=== PATIENT | male | born 1945 | race Caucasian/White ===

== ENCOUNTER 2016-06-03 07:23 | Inpatient (IN) | payer BC, OTHER ==
[~2016-06-03] VITALS: Ht 172.7 cm; Wt 81.6 kg
[2016-06-03 07:39] VITALS: BP 127/81; PULSE 89; RESP 16; TEMP 98.2; O2SAT 99
[2016-06-03] MEDS ORDERED: NACL 0.9% 1,000 ML IV SCH (07:39)
--- NOTE | 2016-06-03 07:42 | NUR ---
AMBULATED TO BED 3
--- NOTE | 2016-06-03 07:43 | NUR ---
Dr. Nix at bedside for evaluation
[2016-06-03] MEDS ORDERED: KETOROLAC TROMETHAMINE 30 MG VIAL IVP ONE (08:00)
[2016-06-03] MEDS ORDERED: ONDANSETRON HCL 4 MG/2 ML VIAL IVP ONE (08:00)
--- NOTE | 2016-06-03 08:00 | NUR ---
Pt c/o constant upper abd pain x4 days. Denies nausea/vomiting/diarrhea. Last BM 2 days ago, denies constipation. States that he arrived here from [place] on Sunday and has been "eating alot". Denies alcohol use. Hx of back problems which his back was "hurting 2 days ago".
--- NOTE | 2016-06-03 08:06 | NUR ---
Medicated per MD orders. IVF infusing to RAC with no s/sx of infiltration at this time.
[2016-06-03 08:07] LABS: BASOPHILS # (AUTO) 0.1 K/uL (0.0-0.2); BASOPHILS % (AUTO) 0.6 % (0.0-2.0); EOSINOPHILS % (AUTO) 0.1 % (0.0-4.0); HEMATOCRIT 45.5 % (36-54); LYMPHOCYTES # (AUTO) 3.7 K/uL (1.0-5.5); LYMPHOCYTES % (AUTO) 20.7 % (20.5-51.5); MEAN CORPUSCULAR HEMOGLOBIN 29 pg (27-31); MEAN CORPUSCULAR HGB CONC 33 % (32-36); MEAN CORPUSCULAR VOLUME 87 fL (79.0-98.0); MONOCYTES % (AUTO) 5.8 % (1.7-9.3); NEUTROPHILS # (AUTO) 12.9 K/uL (1.8-7.7); NEUTROPHILS % (AUTO) 72.8 % (40.0-70.0); PLATELET COUNT (AUTO) 299 K/uL (130-430); RED BLOOD CELL COUNT(AUTO) 5.22 MIL/uL (4.2-6.2); RED CELL DISTRIBUTION WIDTH 12.7 % (9.0-15.0); WHITE BLOOD COUNT (AUTO) 17.7 K/uL (4.8-10.8)
[2016-06-03 08:10] LABS: CALCIUM 9.6 mg/dL (8.4-11.0); CREATININE 0.79 mg/dL (0.55-1.30); POTASSIUM 3.1 mmol/L (3.5-5.1)
[2016-06-03 08:15] LABS: ALBUMIN 4.2 g/dL (3.4-4.8); TOTAL BILIRUBIN 1.3 mg/dL (0.0-1.0); TOTAL PROTEIN, SERUM 9.1 g/dL (6.4-8.3)
--- NOTE | 2016-06-03 08:45 | NUR ---
Pt states pain is "nearly gone". No acute distress. Will continue to monitor
[2016-06-03 08:53] LABS: BILIRUBIN,URINE NEGATIVE (NEGATIVE); BLOOD, URINE 2+ (NEGATIVE); CLARITY/URINE CLEAR (CLEAR); COLOR,URINE YELLOW (YELLOW); GLUCOSE,URINE NEGATIVE (NEGATIVE); KETONES,URINE 2+ (NEGATIVE); LEUKOCYTE ESTERASE ,URINE NEGATIVE (NEGATIVE); NITRITE, URINE NEGATIVE (NEGATIVE); PROTEIN URINE 2+ (NEGATIVE); UROBILINOGEN,URINE 0.2 (0.2-1.0)
[2016-06-03 09:13] LABS: BACTERIA,URINE FEW /HPF (None Seen); WBC,URINE 0-3 /HPF (0-3)
[2016-06-03 09:14] LABS: MUCUS,URINE None Seen /LPF (None Seen)
[2016-06-03 09:23] LABS: AMYLASE 50 U/L (0-100); LIPASE 206 U/L (73-393)
[2016-06-03] MEDS ORDERED: PIPERACILLIN/TAZO 3.375 GM in NS 50 ML IV ONE (10:00)
[2016-06-03] MEDS ORDERED: PRO40 PO (10:07)
--- NOTE | 2016-06-03 10:07 | NUR ---
Medication reconciliation completed with information provided by patient. Any prior medication reconciliation on file was reviewed and corrected.
[2016-06-03] MEDS ORDERED: POTASSIUM CHLORIDE 20 MEQ TAB.PRT.SR PO ONE (10:15)
[2016-06-03] MEDS ORDERED: PIPERACILLIN/TAZOBACTAM 3.375 GM/VIAL (ZOSYN) IV ONE (10:15)
--- NOTE | 2016-06-03 10:21 | NUR ---
Patient will be admitted to care of Dr. Mackey. Admitted to med/surg unit. Will go to room 135. Belongings list completed. Summary report printed. Report given to RN at bedside. Transfer to [facility]. IV present no sign or symptom of infiltration.
--- NOTE | 2016-06-03 10:33 | NUR ---
ADMISSION: The patient, CHRIS RODRIGUEZ, 70 y/o, M admitted by BLANCA MYERS MD, was given written information regarding hospital policies, unit procedures and contact persons.
[2016-06-03 10:37] VITALS: BP 135/80; PULSE 88; RESP 18; TEMP 98.2; O2SAT 100
[2016-06-03 10:40] VITALS: BP 135/80; PULSE 88; RESP 18; TEMP 98.2; O2SAT 100
--- NOTE | 2016-06-03 11:13 | NUR ---
CALLED GI CONSULT TO DR MONROY, DR CRAVEN DE ICER ELEMENT WINDER RE: CHOLEGENTIS. SPOKE TO LISA
[2016-06-03] MEDS: LR 1,000 ML IV SCH ×2 (11:47→22:10)
--- NOTE | 2016-06-03 12:00 | NUR ---
NOTE REC'D PT FROM [facility] ADMIT RN AT 1115AM. PT STABLE. ORIENTED PT TO NURSING ROUTINE AND PROCEDURES. IVF'S INFUSING WELL THROUGH RIGHT AC IV SITE. PT AMBULATORY TO RESTROOM WITH STEADY GAIT AND IV POLE. NO NEEDS NOTED AT THIS TIME. PT'S AT BEDSIDE AT THIS TIME. CALL LIGHT WITHIN REACH.
[2016-06-03] MEDS ORDERED: fentaNYL CITRATE/PF 100 MCG/2 ML AMP ONE (14:00)
[2016-06-03] MEDS ORDERED: MIDAZOLAM HCL 5 MG/5 ML VIAL ONE (14:00)
[2016-06-03] MEDS ORDERED: NS IRRIG SOLN 1000 ML IR ONE (14:00)
[2016-06-03] MEDS ORDERED: SEVOFLURANE 15 MIN GAS INH ONE (14:00)
[2016-06-03] MEDS ORDERED: LR 1,000 ML IV.SOLN IV ONE (14:00)
[2016-06-03] MEDS ORDERED: ONDANSETRON HCL 4 MG/2 ML VIAL ONE (14:00)
[2016-06-03] MEDS ORDERED: ROCURONIUM BROMIDE 10 MG/ML (ZEMURON) ONE (14:00)
[2016-06-03] MEDS ORDERED: KETOROLAC TROMETHAMINE 30 MG VIAL ONE (14:00)
[2016-06-03] MEDS ORDERED: NS 1000 ML BAG IV ONE (14:00)
[2016-06-03] MEDS ORDERED: BUPIVACAINE /EPINEPHRINE/PF 0.5% 30 ML VIAL INJ ONE (14:00)
--- NOTE | 2016-06-03 14:40 | NUR ---
NOTE PT RESTING IN BED. PT HAS BEEN KEPT NPO SINCE ADMISSION TO FLOOR AND GI CONSULTS WILL ASSESS AND GIVE ORDERS. NO NEEDS NOTED AT THIS TIME. CALL LIGHT WITHIN REACH.
[2016-06-03] MEDS ORDERED: ONDANSETRON HCL 4 MG/2 ML VIAL IVP PRN ×2 (16:45→18:00)
[2016-06-03] MEDS ORDERED: MORPHINE 4 MG/ML INJ. SYRINGE IVP PRN (16:45)
[2016-06-03] MEDS ORDERED: PANTOPRAZOLE SODIUM 40 MG/VIAL (PROTONIX) IVP ONE (18:15)
[2016-06-03 18:43] LABS: PROTHROMBIN TIME 11.2 SECS (9.5-12.5)
--- NOTE | 2016-06-03 18:50 | NUR ---
NOTE PT WAS SEEN AND ASSESSED BY DR MYERS AND ORDERS GIVEN AND CARRIED OUT AT THIS TIME. [facility]PT - [facility] CALLED, STATED EXCHANGE CONSULTANT ELIAN WILL BE COMING IN AND WILL DO PT'S US OF ABDOMEN IN 1 1/2 HOURS TONIGHT. PT'S AT BEDSIDE. CALL LIGHT WITHIN REACH. PT GIVEN URINAL REQUESTED, HE FINDS IT TOO PAINFUL TO AMBULATE TO RESTROOM AT THIS TIME.
[2016-06-03] MEDS: PIPERACILLIN/TAZO 3.375/DEX-IS 50 ML IV SCH (19:01)
[2016-06-03 20:00] VITALS: BP 129/78; PULSE 108; RESP 18; TEMP 98.7; O2SAT 98
--- NOTE | 2016-06-03 20:00 | NUR ---
INITIAL NOTES: PATIENT IN BED ORIENTED X4. AT BEDSIDE. HAS TOLERABLE ABDOMINAL PAIN. DENIES SOB NOR CHEST PAIN.VITAL SIGNS TAKEN,ALL WITHIN NORMAL LIMITS. IVF INFUSING WELL TO RIGHT AC NS 100ML/HR. SITE CLEAR.INSTRUCTED TO SAVE URINE FOR TEST. RECEPTIVE. CALL LIGHT WITHIN REACH. BED IN LOW POSITION. TACHYCARDEIC .WILL MONITOR CLOSELY.
[2016-06-03 20:10] VITALS: BP 135/81; PULSE 99
--- NOTE | 2016-06-03 20:50 | NUR ---
ABDOMINAL ULTRASOUND DONE.
[2016-06-03] MEDS: LACTOBACILLUS RHAMNOSUS GG 1 CAP CAPSULE PO SCH (21:00)
--- NOTE | 2016-06-03 21:09 | NUR ---
CONSULT: DR DE LA CRUZ Consult was called, RE cholecystitis virgie Mari
--- NOTE | 2016-06-03 21:40 | NUR ---
CALLED BACK. REPORT GIVEN. WILL SEE PATIENT IN AM.
--- NOTE | 2016-06-03 23:30 | NUR ---
PAIN: PATIENT COMPLAIN OF ABDOMINAL PAIN.DILAUDID 2MG IV GIVEN VIA CLEAR IV SITE ,LEVEL 7/10.
[2016-06-03] MEDS: HYDROmorphone 2 MG/ML VIAL IVP PRN (23:32)
--- NOTE | 2016-06-04 | NUR ---
FEVER: TEMP. 101.6. WITH 5 BLANKETS AND JACKET. REMOVED LEAVING SHEET AND BATH BLANKET.
[2016-06-04] MEDS: PIPERACILLIN/TAZO 3.375/DEX-IS 50 ML IV SCH ×4 (00:43→17:46)
[2016-06-04 00:50] VITALS: BP 107/67; PULSE 103; RESP 17; TEMP 101.7; O2SAT 94
--- NOTE | 2016-06-04 01:01 | NUR ---
paged for Dr Mackey, dialed . s/w Celeste.
--- NOTE | 2016-06-04 01:05 | NUR ---
RECHECKED, 101.8. COOLING MEASURES INITIATED.
[2016-06-04] MEDS: ACETAMINOPHEN 650 MG SUPP.RECT RC PRN ×2 (01:40→20:25)
--- NOTE | 2016-06-04 01:40 | NUR ---
Liudmila WADE CALLED BACK. REPORTED ABOUT FEVER ,WITH ORDERS. BLOOD CULTURE DONE.
--- NOTE | 2016-06-04 01:45 | NUR ---
TYLENOL SUPPOSITORY GIVEN ORDERED.
--- NOTE | 2016-06-04 02:30 | NUR ---
PATIENT RESTING QUITELY. THIS TIME.
[2016-06-04 04:00] VITALS: BP 110/70; PULSE 97; RESP 16; TEMP 99.7; O2SAT 96
--- NOTE | 2016-06-04 04:00 | NUR ---
PATIENT SLEEPING THIS TIME.
[2016-06-04 06:30] LABS: BASOPHILS % (AUTO) 0.1 % (0.0-2.0); HEMATOCRIT 39.9 % (36-54); HEMOGLOBIN 13.4 g/dL (14.0-18.0); LYMPHOCYTES # (AUTO) 1.8 K/uL (1.0-5.5); LYMPHOCYTES % (AUTO) 10.6 % (20.5-51.5); MEAN CORPUSCULAR HEMOGLOBIN 29 pg (27-31); MEAN CORPUSCULAR HGB CONC 33 % (32-36); MEAN CORPUSCULAR VOLUME 88 fL (79.0-98.0); MONOCYTES # (AUTO) 1.4 K/uL (0.0-1.0); MONOCYTES % (AUTO) 8.2 % (1.7-9.3); NEUTROPHILS # (AUTO) 14.1 K/uL (1.8-7.7); NEUTROPHILS % (AUTO) 81.1 % (40.0-70.0); PLATELET COUNT (AUTO) 276 K/uL (130-430); RED BLOOD CELL COUNT(AUTO) 4.56 MIL/uL (4.2-6.2); RED CELL DISTRIBUTION WIDTH 12.5 % (9.0-15.0); WHITE BLOOD COUNT (AUTO) 17.3 K/uL (4.8-10.8)
--- NOTE | 2016-06-04 06:30 | NUR ---
CLOSING: PATIENT IS AWAKE WRITING PERSONAL THINGS. HAS TOLERABLE ABDOMINAL PAIN. VOIDED BRADLEY CLEAR URINE. ALL NEEDS WERE ATTENDED.NO ACUTE DISTRESS. KEPT NPO. ASSISTED DO ORAL CARE. NEW GOWN USED. WILL GIVE REPORT TO AM RN .
[2016-06-04 06:42] LABS: ALBUMIN 3.3 g/dL (3.4-4.8); CREATININE 0.88 mg/dL (0.55-1.30); POTASSIUM 3.5 mmol/L (3.5-5.1); TOTAL BILIRUBIN 2.6 mg/dL (0.0-1.0); TOTAL PROTEIN, SERUM 7.6 g/dL (6.4-8.3)
[2016-06-04] MEDS: HYDROmorphone 2 MG/ML VIAL IVP PRN ×2 (06:56→20:34)
--- NOTE | 2016-06-04 07:06 | NUR ---
Handoff rounds from noc nurse. Patient not able to have trip to [facility] as planned d/t hospitalization. Requesting letter to give to the [employer] the family had arranged travel with.
[2016-06-04 08:11] VITALS: BP 92/59; PULSE 78; RESP 16; TEMP 97.4
[2016-06-04] MEDS: LR 1,000 ML IV SCH ×2 (09:00→17:47)
--- NOTE | 2016-06-04 09:00 | NUR ---
Family requesting surgeon to visit with patient. Call placed to surgeon last pm.
[2016-06-04] MEDS: LACTOBACILLUS RHAMNOSUS GG 1 CAP CAPSULE PO SCH ×2 (10:19→20:23)
[2016-06-04] MEDS: PANTOPRAZOLE SODIUM 40 MG/VIAL (PROTONIX) IVP SCH (10:19)
--- NOTE | 2016-06-04 11:09 | NUR ---
Med pass tolerated well. One prn zofran given has relieved nausea experienced by patient. Says mostly dizziness now. Discussed possible advance of diet after test MRI MRCP.
[2016-06-04 11:14] VITALS: BP 90/47; PULSE 78; RESP 16; TEMP 97; O2SAT 94
--- NOTE | 2016-06-04 11:52 | NUR ---
ROUNDS TO PATIENT. NOTES 10/07 IN RIGHT UPPER ABDOMEN QUADRANT.
--- NOTE | 2016-06-04 14:00 | NUR ---
ROUNDS TO PATIENT. ASSIST WITH POSITIVE THOUGHTS RE: PAIN. SAYS 10/07 IN ABDOMEN. WANTS TO WAIT FOR PAIN CONTROL VIA MEDICATION.
[2016-06-04 14:03] VITALS: BP 111/68; PULSE 100; RESP 16; TEMP 98.7; O2SAT 94
--- NOTE | 2016-06-04 16:00 | NUR ---
SURGEON ROUNDS. NEEDS MET AT THIS TIME. WILL MONITOR FOR FURTHER PAIN.
--- NOTE | 2016-06-04 18:25 | NUR ---
Handoff report prepared for noc nurse. Patient says antibiotics are helping him with his pain. Right side lying. Taking sips of fluid per surgeon orders.
--- NOTE | 2016-06-04 19:30 | NUR ---
INITIAL NOTES: PATIENT IN BED RESTING WITH BLANKETS ON. AT BEDSIDE.STATED FEELS COLD EARLIER.IVF INFUSING AT 100ML/HR. SITE CLEAR.CALL LIGHT WITHIN REACH, BED IN LOW POSITION. HAS FEVER. TACHY 102. WILL GIVE TYLENOL SUPP. AND DO COOLING MEASURES. NO ACUTE DISTRESS.
[2016-06-04 20:00] VITALS: BP 113/61; PULSE 100; PULSE 109; RESP 18; TEMP 101; TEMP 101.2; O2SAT 93
--- NOTE | 2016-06-04 20:30 | NUR ---
PAIN/FEVER: TEMP. 101.4.TYLENOL SUPPOSITORY GIVEN. ORAL CAR DONE. COOLING MEASURES GIVEN.
--- NOTE | 2016-06-04 21:20 | NUR ---
MEDS ADMIN: ALL DUE MEDS GIVEN WITH SIPS OF WATER. TOLERATED WELL. VOIDING DARK TEA COLORED URINE.
--- NOTE | 2016-06-04 23:30 | NUR ---
TEMP. 99.1 DOING PERSONAL THINGS ON THE COMPUTER.
[2016-06-05] VITALS (7 sets, daily range): BP systolic 106–127; BP diastolic 54–79; PULSE 89–108; RESP 16–21; TEMP 98.1–101.5; O2SAT 90–98
[2016-06-05] MEDS: PIPERACILLIN/TAZO 3.375/DEX-IS 50 ML IV SCH ×5 (00:23→23:52)
--- NOTE | 2016-06-05 00:30 | NUR ---
VOIDED DARK TEA COLORED URINE. HAS TOLERABLE ABDOMINAL PAIN.
--- NOTE | 2016-06-05 02:30 | NUR ---
PATIENT RESTING WITH EYES CLOSE. NO DISTRESS.
--- NOTE | 2016-06-05 04:30 | NUR ---
TEMP. 101.3 SKIN WARM TO TOUCH. TYLENOL SUPP. GIVEN. ASSISTED TO DO ORAL CARE. COOLING MEASURES INITIATED.
[2016-06-05] MEDS: LR 1,000 ML IV SCH ×3 (04:51→23:52)
[2016-06-05] MEDS: ACETAMINOPHEN 650 MG SUPP.RECT RC PRN ×2 (04:54→22:37)
--- NOTE | 2016-06-05 05:00 | NUR ---
SIGNED CONSENT FOR MRCP AND CHECKLIST ANSWERED AFTER EXPLAINING ABOUT IT WITH UNDERSTANDING ,WHICH WAS EXPLAINED BY YESTERDAY.
--- NOTE | 2016-06-05 05:52 | NUR ---
Paged virgie Doshi.
--- NOTE | 2016-06-05 05:55 | NUR ---
Liudmila VERMA CALLED BACK. REPORTED ABOUT PATIENT FEVER X2. TYLENOL GIVEN AND COOLING MEASURES DONE. NO NEW ORDERS. SAID CONTINUE TYLENOL SUPPOSITORY.
--- NOTE | 2016-06-05 06:50 | NUR ---
CLOSING: COOLING MEASURES IN PROGRESS. ALL NEEDS WERE ATTENDED. HOURLY ROUNDS DONE. NO ACUTE DISTRESS. REASSURANCES AND EMOTIONAL PROVIDED. WILL GIVE REPORT TO AM RN FOR CONTINUITY OF CARE.
--- NOTE | 2016-06-05 08:00 | NUR ---
AM ROUNDS: NO s/s of distress noted. Will continue to monitor.
[2016-06-05] MEDS: LACTOBACILLUS RHAMNOSUS GG 1 CAP CAPSULE PO SCH ×2 (08:23→20:43)
[2016-06-05] MEDS: PANTOPRAZOLE SODIUM 40 MG/VIAL (PROTONIX) IVP SCH (08:26)
--- NOTE | 2016-06-05 10:01 | NUR ---
PATIENT RESTING: Patient resting quietly. No acute distress noted. Vital signs within normal range.
[2016-06-05 10:03] LABS: HEMATOCRIT 39.4 % (36-54); HEMOGLOBIN 13.1 g/dL (14.0-18.0); MEAN CORPUSCULAR HEMOGLOBIN 29 pg (27-31); MEAN CORPUSCULAR HGB CONC 33 % (32-36); MEAN CORPUSCULAR VOLUME 87 fL (79.0-98.0); PLATELET COUNT (AUTO) 284 K/uL (130-430); RED BLOOD CELL COUNT(AUTO) 4.54 MIL/uL (4.2-6.2); RED CELL DISTRIBUTION WIDTH 12.6 % (9.0-15.0); WHITE BLOOD COUNT (AUTO) 19.5 K/uL (4.8-10.8)
[2016-06-05 10:15] LABS: CALCIUM 9.3 mg/dL (8.4-11.0); CREATININE 1.18 mg/dL (0.55-1.30); POTASSIUM 3.6 mmol/L (3.5-5.1)
[2016-06-05 10:20] LABS: ALBUMIN 3.1 g/dL (3.4-4.8); TOTAL BILIRUBIN 4.5 mg/dL (0.0-1.0); TOTAL PROTEIN, SERUM 7.8 g/dL (6.4-8.3)
[2016-06-05 10:26] LABS: ATYPICAL LYMPHOCYTES % 0 % (0-0); BAND % (MANUAL) 0 % (0-6); BASOPHILS % (MANUAL) 0 % (0-2); EOSINOPHILS % (MANUAL) 0 % (0-7); LYMPHOCYTES % (MANUAL) 14 % (20-46); MONOCYTES % (MANUAL) 9 % (0-11)
--- NOTE | 2016-06-05 12:25 | NUR ---
PATIENT RESTING: Patient resting quietly. No acute distress noted. Vital signs within normal range.
--- NOTE | 2016-06-05 12:43 | NUR ---
Social Service Note: Pt referred to social work nurse by sample case porter for advanced directive information. COAL WHEELER met with pt and pt's significant other at bedside. Pt states that he has an advanced directive in [place] but wants to change it; COAL WHEELER alerted pt that the advanced directive that the hospital has is a [place] advanced directive. Pt states that he his having surgery and wants to document his wishes here in [place]. COAL WHEELER spoke with pt about a POLST form; pt and pt's significant other stated that the POLST form would be most appropriate. COAL WHEELER provided pt with a POLST form and explained what needed to be filled out. Pt will fill out POLST form and then give to pt's nurse to place in chart for physician to sign. A copy of a [place] advanced directive was also given to pt per his request. COAL WHEELER will remain available for support and will follow up as needed.
[2016-06-05] MEDS ORDERED: MEPERIDINE HCL/PF 100 MG/ML AMP ONE (12:44)
[2016-06-05] MEDS: MIDAZOLAM HCL 5 MG/5 ML VIAL ONE ×4 (13:43→13:53)
[2016-06-05] MEDS: MEPERIDINE HCL/PF 100 MG/ML AMP ONE ×2 (13:43→13:56)
[2016-06-05] MEDS ORDERED: IOHEXOL 50 ML IV ONE (13:46)
--- NOTE | 2016-06-05 14:29 | NUR ---
ROUNDS: Patient is in OR.
--- NOTE | 2016-06-05 16:10 | NUR ---
ROUNDS: Patient in OR.
--- NOTE | 2016-06-05 18:51 | NUR ---
CLOSING NOTE: All needs met. ERCP performed today. Stones in common bile duct found. Possible lap choly with Dr. Coy tomorrow. Will endorse to NOC shift nurse.
--- NOTE | 2016-06-05 20:00 | NUR ---
PM Shift Assessment Received patient lying in bed, no acute distress noted, family members at the bedside. Assessment complete, low grade fever noted, cooling measures applied. Patient states pain to abdomen is tolerable at this time, pain management education provided and patient verbalized understanding. Dr Coy at the bedside, new orders noted and to be carried out. IV noted to left wrist, IV fluids infusing well, no redness or swelling noted to IV site. Plan of care discussed with patient and family, they verbalized understanding. Call light is within reach, all fall and safety precautions in place, will continue to monitor for change in patient status.
--- NOTE | 2016-06-05 22:29 | NUR ---
RN Rounds Patient is resting quietly in bed, no acute distress noted. Patient noted with fever, PRN Tylenol suppository was administered as ordered per MD, cooling measures applied, will reassess for decrease in temperature. Scheduled medications were administered as ordered per MD. Incentive spirometer noted at the bedside, education provided on the importance of use 10/hour while awake after surgery, patient verbalized understanding and is able to demonstrate correct use up to 750mL of inspired air. Encouraged patient to call for assistance as needed, call light is within reach, all fall and safety precautions in place, will continue to monitor.
[2016-06-06] VITALS (8 sets, daily range): BP systolic 120–138; BP diastolic 64–86; PULSE 80–100; RESP 17–22; TEMP 97–101.1; O2SAT 94–98
--- NOTE | 2016-06-06 00:27 | NUR ---
RN Rounds Patient is resting quietly in bed, no acute distress noted. Temperature was reassessed earlier and noted to be 100.8, additional cooling measures applied. Call IV fluids in fusing well, call light is within reach, all fall and safety precautions in place, will continue to monitor closely.
--- NOTE | 2016-06-06 02:33 | NUR ---
RN Rounds Patient is resting quietly in bed, no acute distress noted. Patient is afebrile at this time, temperature 99.7. IV fluids infusing well. Call light is within reach, all fall and safety precautions in place, will continue to monitor.
--- NOTE | 2016-06-06 04:31 | NUR ---
RN Rounds Patient is sleeping but easily arousable, no acute distress noted. Patient states pain is tolerable at this time. IV fluids infusing well. Call light is within reach, all fall and safety precautions in place, will continue to monitor.
[2016-06-06] MEDS: PIPERACILLIN/TAZO 3.375/DEX-IS 50 ML IV SCH ×4 (05:06→23:42)
--- NOTE | 2016-06-06 06:46 | NUR ---
Closing Notes Patient is resting quietly in bed, no acute distress noted or complain of pain at this time. Patient is stable, all needs met throughout shift. Will continue to monitor until endorsed to AM nurse at bedside.
[2016-06-06] MEDS: ACETAMINOPHEN 650 MG SUPP.RECT RC PRN (07:26)
--- NOTE | 2016-06-06 07:33 | NUR ---
AM ROUNDS: Patient has temperature of 101.1. Administered Tylenol suppository. Informed Deni in OR. Paged Dr. Coy.
[2016-06-06 07:59] LABS: ALBUMIN 2.5 g/dL (3.4-4.8); CALCIUM 8.6 mg/dL (8.4-11.0); CREATININE 0.91 mg/dL (0.55-1.30); POTASSIUM 3.1 mmol/L (3.5-5.1); TOTAL BILIRUBIN 2.8 mg/dL (0.0-1.0); TOTAL PROTEIN, SERUM 6.5 g/dL (6.4-8.3)
[2016-06-06 08:12] LABS: A/G RATIO 1.2 (0.7-1.7); ALBUMIN 4.1 g/dL (2.9-4.4); ALPHA-1-GLOBULIN 0.5 g/dL (0.0-0.4); ALPHA-2-GLOBULIN 0.9 g/dL (0.4-1.0); BETA GLOBULIN 1.1 g/dL (0.7-1.3); GAMMA GLOBULIN 0.9 g/dL (0.4-1.8); GLOBULIN, TOTAL 3.3 g/dL (2.2-3.9); M-SPIKE Not Observed g/dL (Not Observed)
[2016-06-06] MEDS ORDERED: LR 1,000 ML IV SCH (08:44)
[2016-06-06] MEDS ORDERED: ONDANSETRON HCL 4 MG/2 ML VIAL IVP PRN (08:45)
[2016-06-06] MEDS ORDERED: ePHEDrine sulfate 50 MG/ML VIAL IVP PRN (08:45)
[2016-06-06] MEDS ORDERED: HYDROmorphone 2 MG/ML VIAL IVP PRN (08:45)
[2016-06-06] MEDS ORDERED: HYDROmorphone 1 MG INJ. 1 MG/ML AMPUL IVP PRN (08:45)
[2016-06-06] MEDS ORDERED: MEPERIDINE HCL/PF 25 MG/ML DISP.SYRIN IVP PRN ×2 (08:45)
[2016-06-06] MEDS: PANTOPRAZOLE SODIUM 40 MG/VIAL (PROTONIX) IVP SCH (08:54)
[2016-06-06] MEDS: LR 1,000 ML IV SCH ×2 (08:54→21:14)
[2016-06-06] MEDS: LACTOBACILLUS RHAMNOSUS GG 1 CAP CAPSULE PO SCH ×2 (08:55→21:13)
--- NOTE | 2016-06-06 10:07 | NUR ---
ROUNDS: Patient in OR.
[2016-06-06] MEDS ORDERED: HYDROcodone/ACETAMIN 5-325 MG TAB (NORCO/ VICODIN) PO PRN (10:15)
[2016-06-06] MEDS ORDERED: POTASSIUM CHLORIDE 20 MEQ/PKT PACKET PO ONE (10:45)
--- NOTE | 2016-06-06 12:22 | NUR ---
PATIENT RESTING: Patient resting quietly. No acute distress noted. Vital signs within normal range.
--- NOTE | 2016-06-06 14:00 | NUR ---
PATIENT RESTING: Patient resting quietly. No acute distress noted. Vital signs within normal range.
--- NOTE | 2016-06-06 18:17 | NUR ---
CLOSING NOTE: All needs met. Patient had lap choly today. MALCOLM drain to right lower abdomen. Will endorse to NOC shift nurse.
--- NOTE | 2016-06-06 19:40 | NUR ---
INITIAL NOTE Patient resting on the bed. No acute distress. AO x 4. Denied of pain. On O2 2L/min via NC. Skin warm and dry to touch. IV intact to left wrist, no redness, no swelling, no drainage. On LR at 100ml/hr, infusing well. Abdomen incision sites x 4, intact with clean and dry dressing, no bleeding note. MALCOLM drain intact to left lower abdomen, drain with red color of output. SCD in placed. Girl friend at bedside. Discussed the safety issue, use call light when need help, plan of care and use incentive spirometer as tolerated, verbally understanding. Safety measure maintained. Call light within reached. Bed alarm on, bed in low position, side rails up. Will continue to monitor.
[2016-06-06] MEDS: POTASSIUM CHLORIDE 20 MEQ/PKT PACKET PO SCH (21:13)
--- NOTE | 2016-06-06 21:30 | NUR ---
ROUND Patient resting on the bed comfortable. No acute distress. Continue on O2 2L/min via NC. Safety measure maintained. Call light within reached. Bed in low position, side rails up, bed alarm on. Continue to monitor.
--- NOTE | 2016-06-06 23:27 | NUR ---
ROUND Patient sleeping at this time. No acute distress. Safety measure maintained. Call light within reached. Bed in low position, be alarm on, side rails up. Continue to monitor.
--- NOTE | 2016-06-07 02:39 | NUR ---
ASSISTED TO USE URINAL Assisted patient to use urinal with 380ml blair color of urine.
--- NOTE | 2016-06-07 03:31 | NUR ---
ROUND Patient sleeping at this time. No acute distress. Safety measure maintained. Call light within reached. Bed in low position, bed alarm on, side rails up. Continue to monitor.
[2016-06-07 04:45] VITALS: BP 131/80; PULSE 77; RESP 18; TEMP 96.8; O2SAT 96
--- NOTE | 2016-06-07 04:51 | NUR ---
ROUND Patient sleeping at this time. No acute distress. Safety measure maintained. Bed in low position, side rails up, bed alarm on. Call light within reached. Continue to monitor.
--- NOTE | 2016-06-07 05:00 | NUR ---
ROUND Patient sleeping at this time. No acute distress. Bed in low position, side rails up, bed alarm on. Call light within reached. Continue to monitor.
[2016-06-07] MEDS: PIPERACILLIN/TAZO 3.375/DEX-IS 50 ML IV SCH (05:25)
--- NOTE | 2016-06-07 06:48 | NUR ---
CLOSING NOTE Patient resting on the bed comfortable. No acute distress. Denied of pain. On O2 2L/min via NC. Skin warm and dry to touch. IV intact to left wrist, no redness, no swelling, no drainage. On LR at 100ml/hr, infusing well. Abdomen incision sites x 4, intact with clean and dry dressing, no bleeding note. MALCOLM drain intact to left lower abdomen, drain with red color of output. SCD in placed. All needs met. Hourly rounding during shift. Call light within reached. Bed alarm on, bed in low position, side rails up. Will monitor to morning shift nurse.
[2016-06-07 07:31] LABS: HEMATOCRIT 32.3 % (36-54); HEMOGLOBIN 10.8 g/dL (14.0-18.0); LYMPHOCYTES # (AUTO) 1.6 K/uL (1.0-5.5); LYMPHOCYTES % (AUTO) 13.9 % (20.5-51.5); MEAN CORPUSCULAR HEMOGLOBIN 29 pg (27-31); MEAN CORPUSCULAR HGB CONC 33 % (32-36); MEAN CORPUSCULAR VOLUME 88 fL (79.0-98.0); MONOCYTES # (AUTO) 0.7 K/uL (0.0-1.0); MONOCYTES % (AUTO) 6.1 % (1.7-9.3); NEUTROPHILS # (AUTO) 9.6 K/uL (1.8-7.7); PLATELET COUNT (AUTO) 252 K/uL (130-430); RED BLOOD CELL COUNT(AUTO) 3.68 MIL/uL (4.2-6.2); RED CELL DISTRIBUTION WIDTH 13.1 % (9.0-15.0); WHITE BLOOD COUNT (AUTO) 11.9 K/uL (4.8-10.8)
[2016-06-07 07:50] LABS: ALBUMIN 2.3 g/dL (3.4-4.8); CALCIUM 8.3 mg/dL (8.4-11.0); CREATININE 0.92 mg/dL (0.55-1.30); POTASSIUM 3.5 mmol/L (3.5-5.1); TOTAL BILIRUBIN 1.2 mg/dL (0.0-1.0); TOTAL PROTEIN, SERUM 6.6 g/dL (6.4-8.3)
--- NOTE | 2016-06-07 08:00 | NUR ---
OPENING NOTE: RECEIVED REPORT FROM NIGHT NURSE. PATIENT IS RESTING COMFORTABLY IN BED. NO S/S OF DISTRESS OR SOB. PATIENT IS ALERT AND ORIENTED, ABLE TO EXPRESS NEEDS, AND ASK FOR ASSISTANCE. VITAL SIGNS WNL, ASSESSMENT COMPLETE. MALCOLM DRAIN IS IN PLACE. IV IS PATENT. CALL LIGHT IN REACH, BED IN LOWEST POSITION, AND WILL CONTINUE TO MONITOR.
--- NOTE | 2016-06-07 08:22 | NUR ---
Nutrition Update Toy Scale 16 noted. Pt admitted for cholangitis. Diet: clear liquid BMI: 27.4 kg/m2 RD to follow per nutrition care standards.
[2016-06-07 08:37] VITALS: BP 137/81; PULSE 84; RESP 17; TEMP 98.7; O2SAT 100
[2016-06-07] MEDS: POTASSIUM CHLORIDE 20 MEQ/PKT PACKET PO SCH ×2 (08:46→21:08)
[2016-06-07] MEDS: LACTOBACILLUS RHAMNOSUS GG 1 CAP CAPSULE PO SCH ×2 (08:46→21:09)
[2016-06-07] MEDS: PANTOPRAZOLE SODIUM 40 MG/VIAL (PROTONIX) IVP SCH (08:46)
[2016-06-07] MEDS: LR 1,000 ML IV SCH ×3 (08:52→22:52)
--- NOTE | 2016-06-07 10:05 | NUR ---
NOTE: PATIENT IS RESTING COMFORTABLY IN BED. NO S/S OF DISTRESS OR SOB. PATIENT IS ALERT AND ORIENTED. CALL LIGHT IN REACH, BED IN LOWEST POSITION, AND WILL CONTINUE TO MONITOR.
[2016-06-07] MEDS ORDERED: LOPERAMIDE HCL 2 MG CAPSULE PO ONE (10:45)
[2016-06-07] MEDS ORDERED: LEVOFLOXACIN 500 MG/D5W 100 ML IV ONE (11:00)
[2016-06-07] MEDS ORDERED: LEVOFLOXACIN 500 MG/D5W 100 ML IV SCH (11:00)
[2016-06-07] MEDS: metroNIDAZOLE 500 mg/NS 100 ML IV SCH ×3 (11:20→21:09)
[2016-06-07 11:30] VITALS: BP 134/80; PULSE 82; RESP 17; TEMP 97; O2SAT 97
[2016-06-07 13:35] VITALS: Ht 172.7 cm; Wt 81.6 kg
[2016-06-07 13:51] LABS: ALPHA-2-GLOBULIN, UR 18.8; BETA GLOBULIN, UR 20.1
--- NOTE | 2016-06-07 14:00 | NUR ---
NOTE: PATIENT IS RESTING COMFORTABLY IN BED. NO S/S OF DISTRESS OR SOB. PATIENT IS ALERT AND ORIENTED, ABLE TO EXPRESS NEEDS, AND ASK FOR ASSISTANCE. CALL LIGHT IN REACH, BED IN LOWEST POSITION, AND WILL CONTINUE TO MONITOR.
[2016-06-07 15:38] VITALS: BP 121/71; PULSE 68; RESP 16; TEMP 97.1; O2SAT 100
--- NOTE | 2016-06-07 18:22 | NUR ---
CLOSING NOTE: PATIENT IS RESTING COMFORTABLY IN BED. NO S/S OF DISTRESS OR SOB. PATIENT IS ALERT AND ORIENTED, ABLE TO EXPRESS NEEDS, AND ASK FOR ASSISTANCE. CALL LIGHT IN REACH, BED IN LOWEST POSITION, AND WILL GIVE REPORT TO NIGHT NURSE.
[2016-06-07 19:30] VITALS: BP 129/72; PULSE 78; RESP 18; TEMP 97.2; O2SAT 99
--- NOTE | 2016-06-07 19:30 | NUR ---
INITIAL NOTE Patient resting on the bed comfortable. No acute distress. AO x 4. Denied of pain. On O2 2L/min via NC. Skin warm and dry to touch. IV intact to left wrist, no redness, no swelling, no drainage. On LR at 100ml/hr, infusing well. Abdomen incision sites x 4, intact with clean and dry dressing, no bleeding note. MALCOLM drain intact to left lower abdomen, drain with red color of output. SCD in placed. Discussed the safety issue, use call light when need help, plan of care and use incentive spirometer as tolerated, verbally understanding. Safety measure maintained. Bed alarm on, bed in low position, side rails up. Call light within reached. Will continue to monitor.
--- NOTE | 2016-06-07 21:30 | NUR ---
Round Patient resting on the bed comfortable. No acute distress. Continue on O2 via NC. Safety measure maintained. Bed in low position, side rails up, bed alarm on. Call light within reached. Continue to monitor.
--- NOTE | 2016-06-07 23:50 | NUR ---
ROUND Patient resting on the bed with eyes closed. No acute distress. O2 via NC. Call light within reached. Bed alarm on, bed in low position, side rails up. Continue to monitor.
[2016-06-07 23:56] VITALS: BP 128/81; PULSE 77; RESP 18; TEMP 98; O2SAT 99
--- NOTE | 2016-06-08 02:10 | NUR ---
ROUND Patient resting on the bed with eyes closed. No acute distress. Respiration even and unlabored noted. On O2 via NC. Call light within reached. Bed in low position, side rails up, bed alarm on. Continue to monitor.
[2016-06-08 04:03] VITALS: BP 114/61; PULSE 75; RESP 18; TEMP 99; O2SAT 97
--- NOTE | 2016-06-08 04:11 | NUR ---
ROUND Patient resting on the bed. Respiration even and unlabored noted. On O2 2L/min via NC. Safety measure maintained. Call light within reached. Continue to monitor.
--- NOTE | 2016-06-08 05:30 | NUR ---
ROUND Patient resting on the bed comfortable. No acute distress. On O2 2L/min via NC. Safety measure maintained. Call light within reached. Bed in low position, side rails up, bed alarm on. Continue to monitor.
[2016-06-08] MEDS: metroNIDAZOLE 500 mg/NS 100 ML IV SCH ×3 (06:13→21:30)
--- NOTE | 2016-06-08 06:35 | NUR ---
CLOSING NOTE Patient resting on the bed comfortable. No acute distress. Denied of pain. Continue on O2 2L/min via NC. IV intact to left wrist, no redness, no swelling, no drainage. IVF infusing well. Abdomen incision sites x 4, intact with clean and dry dressing, no bleeding note. MALCOLM drain intact to left lower abdomen, drain with light red color of output. SCD in placed. All needs met. Hourly rounding during shift. Call light within reached. Bed alarm on, bed in low position, side rails up. Will monitor to morning shift nurse.
[2016-06-08 07:52] LABS: ALBUMIN 2.4 g/dL (3.4-4.8); CALCIUM 8.5 mg/dL (8.4-11.0); CREATININE 0.89 mg/dL (0.55-1.30); POTASSIUM 3.6 mmol/L (3.5-5.1); TOTAL BILIRUBIN 0.8 mg/dL (0.0-1.0); TOTAL PROTEIN, SERUM 6.3 g/dL (6.4-8.3)
[2016-06-08 07:57] LABS: BASOPHILS % (AUTO) 0.2 % (0.0-2.0); EOSINOPHILS # (AUTO) 0.3 K/uL (0.0-0.4); EOSINOPHILS % (AUTO) 2.5 % (0.0-4.0); HEMATOCRIT 32.7 % (36-54); HEMOGLOBIN 10.8 g/dL (14.0-18.0); LYMPHOCYTES # (AUTO) 3.1 K/uL (1.0-5.5); LYMPHOCYTES % (AUTO) 30.4 % (20.5-51.5); MEAN CORPUSCULAR HEMOGLOBIN 29 pg (27-31); MEAN CORPUSCULAR HGB CONC 33 % (32-36); MEAN CORPUSCULAR VOLUME 89 fL (79.0-98.0); MONOCYTES # (AUTO) 0.8 K/uL (0.0-1.0); MONOCYTES % (AUTO) 8.3 % (1.7-9.3); NEUTROPHILS % (AUTO) 58.6 % (40.0-70.0); PLATELET COUNT (AUTO) 302 K/uL (130-430); RED BLOOD CELL COUNT(AUTO) 3.69 MIL/uL (4.2-6.2); RED CELL DISTRIBUTION WIDTH 13.3 % (9.0-15.0); WHITE BLOOD COUNT (AUTO) 10.2 K/uL (4.8-10.8)
--- NOTE | 2016-06-08 08:00 | NUR ---
OPENING NOTE: RECEIVED REPORT FROM NIGHT NURSE. PATIENT IS RESTING COMFORTABLY IN BED. NO S/S OF DISTRESS OR SOB. PATIENT IS ALERT AND ORIENTED, ABLE TO EXPRESS NEEDS, AND ASK FOR ASSISTANCE. VITAL SIGNS WNL, ASSESSMENT COMPLETE. CALL LIGHT IN REACH, BED IN LOWEST POSITION, AND WILL CONTINUE TO MONITOR.
[2016-06-08 08:35] VITALS: BP 133/77; PULSE 75; RESP 17; TEMP 97.6; O2SAT 98
[2016-06-08] MEDS: LEVOFLOXACIN 500 MG/D5W 100 ML IV SCH (08:55)
[2016-06-08] MEDS: POTASSIUM CHLORIDE 20 MEQ/PKT PACKET PO SCH ×2 (10:22→21:30)
[2016-06-08] MEDS: PANTOPRAZOLE SODIUM 40 MG/VIAL (PROTONIX) IVP SCH (10:22)
[2016-06-08] MEDS: LACTOBACILLUS RHAMNOSUS GG 1 CAP CAPSULE PO SCH (10:22)
[2016-06-08] MEDS: LR 1,000 ML IV SCH ×2 (11:08→21:31)
[2016-06-08] MEDS ORDERED: ACETAMINOPHEN 500 MG TABLET PO PRN (11:45)
[2016-06-08 12:42] VITALS: BP 128/77; PULSE 68; RESP 18; TEMP 98; O2SAT 98
--- NOTE | 2016-06-08 15:27 | NUR ---
PHYSICAL THERAPY CO-SIGN The Physical Therapy Progress Notes documented by Systems Software Manager have been reviewed. I CONCUR W/REPRINT SORTER NOTE; CONT PER TX PLAN Reviewed/Co-Signed by: Esha Cisneros PT Documentation Done by: TALI GALLAGHER REPRINT SORTER Addendum: 06/08/16 at 1528 by Esha Cisneros PT Amended: Links added.
[2016-06-08 16:28] VITALS: BP 130/72; PULSE 72; RESP 18; TEMP 97.8; O2SAT 98
[2016-06-08 19:00] VITALS: BP 135/78; PULSE 73; RESP 18; TEMP 98.6; O2SAT 98
--- NOTE | 2016-06-08 19:00 | NUR ---
INITIAL ROUNDS RECVD PT IN BED,A/A/O X4 WITH AND DR DE LA CRUZ @ BEDSIDE.NO C/O PAIN AND NO SOB NOTED.PT IS S/P LAP ORION DRESSING INTACT NOTED TO ABDOMEN.IV NOTED TO L ARM G 20 NO INFILTRATE WITH GOOD BLOOD RETURN.ALL EXTREMITIES ARE STRONG AMBULATED WITH ASSIST.DISCUSSED PLAN OF CARE WITH PT AND VERBALIZED UNDERSTANDING.CALL LIGHT WITHIN REACH,WILL CONT TO MONITOR.
--- NOTE | 2016-06-08 19:32 | NUR ---
DR DE LA CRUZ REMOVED MALCOLM DRAIN.POSIBLE D/C MISA
--- NOTE | 2016-06-08 21:00 | NUR ---
ROUNDS PT IS AWAKE WATCHING TV.NO C/O PAIN AND NO SOB NOTED.CALL LIGHT WITHIN REACH,WILL CONT TO MONITOR.
--- NOTE | 2016-06-08 23:00 | NUR ---
ROUNDS PT IS SLEEPING @ THIS TIME.NO S/S OF DISTRESS NOTED.CALL LIGHT WITHIN REACH,WILL CONT TO MONITOR.
[2016-06-09 00:16] VITALS: BP 130/76; PULSE 70; RESP 16; TEMP 98.6; O2SAT 95
--- NOTE | 2016-06-09 01:00 | NUR ---
ROUNDS PT IS COMFORTABLY SLEEPING @ THIS TIME.NO C/O PAIN AND NO RESPI DISTRESS NOTED.CALL LIGHT WITHIN REACH,WILL CONT TO MONITOR.
--- NOTE | 2016-06-09 03:00 | NUR ---
ROUNDS PT IS SLEEPING COMFORTABLY @ THIS TIME.NO S/S OF PAIN AND DISTRESS NOTED.CALL LIGHT WITHIN REACH,WILL CONT TO MONITOR.
[2016-06-09 04:48] VITALS: BP 133/72; PULSE 68; RESP 18; TEMP 98.6; O2SAT 94
--- NOTE | 2016-06-09 05:00 | NUR ---
EMPTY URINAL AND ASSISTED TO GET COMFORTABLE IN BED.CALL LIGHT WITHIN REACH,WILL CONT TO MONITOR.
[2016-06-09] MEDS: metroNIDAZOLE 500 mg/NS 100 ML IV SCH (05:13)
[2016-06-09] MEDS: LR 1,000 ML IV SCH (06:34)
--- NOTE | 2016-06-09 06:53 | NUR ---
FINAL ROUNDS PT IS SLEEPING @ THIS TIME.NO S/S OF PAIN AND NO DISTRESS NOTED.V/S ARE WNL.ALL NEEDS MET AND ANTICIPATED BY NOC NURSES.BED @ LOW POSITION WITH SIDE RAILS UP X3.CALL LIGHT WITHIN REACH,ENDORSED
--- NOTE | 2016-06-09 07:45 | NUR ---
AM ROUNDS PATIENT RESTING IN BED, AWAKE, ALERT AND ORIENTED X4, DENIES PAIN AT THIS TIME, ASSESSMENT COMPLETE, 4 LAPAROSCOPIC INCISION SITES NOTED, WITH DRESSINGS IN PLACE, CLEAN, DRY AND INTACT, EDUCATED THE PATIENT RED CROSS WORKER LIGHT SYSTEM AND TO CALL FOR ANY ASSISTANCE, PATIENT VERBALIZED UNDERSTANDING AT THIS TIME, BED IN LOWEST POSITION, THREE SIDE RAILS UP, BED ALARM ON, BED CLOSE TO NURSE'S STATION, CALL LIGHT NEXT TO THE PATIENT'S HAND, FALL PRECAUTIONS IN PLACE.
[2016-06-09 08:11] VITALS: BP 132/76; PULSE 76; RESP 16; TEMP 98.6; O2SAT 96
[2016-06-09] MEDS: POTASSIUM CHLORIDE 20 MEQ/PKT PACKET PO SCH (08:34)
[2016-06-09] MEDS: PANTOPRAZOLE SODIUM 40 MG/VIAL (PROTONIX) IVP SCH (08:34)
[2016-06-09] MEDS: LEVOFLOXACIN 500 MG/D5W 100 ML IV SCH (08:34)
--- NOTE | 2016-06-09 08:35 | NUR ---
RN ROUNDS PATIENT RESTING IN BED, AWAKE, DENIES PAIN AT THIS TIME, EDUCATED THE PATIENT ON ALL MEDICATIONS AND POTENTIAL SIDE EFFECTS, PATIENT VERBALIZED UNDERSTANDING AND TOLERATED WELL AT THIS TIME, NO OTHER NEEDS AT THIS TIME, BED IN LOWEST POSITION, THREE SIDE RAILS UP, BED ALARM ON, FALL PRECAUTIONS IN PLACE, CALL LIGHT NEXT TO THE PATIENT'S HAND.
--- NOTE | 2016-06-09 09:24 | NUR ---
DR LUCIA LINDSEY STATED PATIENT IS OK TO DISCHARGE, WILL FOLLOW UP.
[2016-06-09] MEDS ORDERED: CIPR-211 PO (09:30)
[2016-06-09] MEDS ORDERED: METR500T PO (09:30)
--- NOTE | 2016-06-09 10:28 | NUR ---
Social Service Note: REHABILITATION SERVICES AIDE received order to provide pt with a letter with admission, discharge, and surgery date on it for [employer]. REHABILITATION SERVICES AIDE has provided pt with letter. Pt states that he has no other needs at this time. REHABILITATION SERVICES AIDE will remain available for support.
--- NOTE | 2016-06-09 11:08 | NUR ---
RN ROUNDS PATIENT RESTING IN BED, DENIES PAIN, PATIENT IS AWARE OF DISCHARGE TODAY, ANSWERED QUESTIONS REGARDING PRESCRIPTIONS AND DIET, NO OTHER NEEDS AT THIS TIME, BED IN LOWEST POSITION, THREE SIDE RAILS UP, BED CLOSE TO NURSE'S STATION, FALL PRECAUTIONS IN PLACE, WILL FOLLOW UP WITH DISCHARGE, FAMILY AT THE BEDSIDE.
--- NOTE | 2016-06-09 11:25 | NUR ---
CALLED IT LEFT VOICEMAIL, PATIENT'S NEW PRESCRIPTIONS ARE STATING PENDING, CALLED [facility] AND PRESCRIPTIONS ARE NOT AVAILABLE, WILL FOLLOW UP WITH IT TO MAKE SURE PATIENT'S PRESCRIPTIONS SENT IT.
[2016-06-09 12:29] VITALS: BP 133/73; PULSE 64; RESP 17; TEMP 98.6; O2SAT 95
--- NOTE | 2016-06-09 13:20 | NUR ---
RN ROUNDS PATIENT RESTING IN BED, DENIES PAIN, INFORMED THAT DR DE LA CRUZ IS TO COME SEE THE PATIENT AND WRITE PRESCRIPTIONS, PATIENT AND FAMILY MEMBER VERBALIZED UNDERSTANDING AT THIS TIME, NO OTHER NEEDS AT THIS TIME, BED IN LOWEST POSITION, THREE SIDE RAILS UP, FALL PRECAUTIONS IN PLACE, CALL LIGHT IN THE PATIENT'S HAND.
--- NOTE | 2016-06-09 13:32 | NUR ---
DR DE LA CRUZ ROUNDS HERE TO SEE THE PATIENT, CHARGE NURSE LUIS NOTIFIED DR DE LA CRUZ REGARDING NEED FOR PRESCRIPTIONS, DR DE LA CRUZ GAVE WRITTEN PRESCRIPTIONS AT THIS TIME, WILL FOLLOW UP WITH PATIENT DISCHARGE.
--- NOTE | 2016-06-09 13:40 | NUR ---
INCENTIVE SPIROMETER EDUCATED THE PATIENT ON USE OF, WHY AND HOW AND HOW OFTEN TO USE THE INCENTIVE SPIROMETER, PATIENT VERBALIZED UNDERSTANDING AND GAVE RETURN DEMONSTRATION AT THIS TIME, REACHES 1500ML.
--- NOTE | 2016-06-09 13:58 | NUR ---
D/C Patient Patient given medication reconciliation form and D/C instructions. Exit Care provided. Patient verbalized understanding. MD discussed with patient the results and treatment provided. Ambulatory with steady gait for discharge to home. Patient in stable condition, ID band removed. IV catheter removed, intact and dressing applied, no active bleeding. Rx of CIPRO PO AND FLAGYL PO given. Patient educated on pain management. All belongings sent with patient. PATIENT WILL TAKE 1400 DOSE OF FLAGYL AT HOME WITH NEW PRESCRIPTION.
[2016-06-09] MEDS ORDERED: ONDANSETRON HCL 4 MG/2 ML VIAL IVP ONE (13:59)
[2016-06-09] MEDS ORDERED: SEVOFLURANE 15 MIN GAS INH ONE (13:59)
[2016-06-09] MEDS ORDERED: SUCCINYLCHOLINE CHLORIDE 20 MG/ML(QUELICIN) IVP ONE (13:59)
[2016-06-09] MEDS ORDERED: WATER FOR IRRIGATION,STERILE 1,000 ML IRRIG.SOLN IR ONE (13:59)
[2016-06-09] MEDS ORDERED: LR 1,000 ML IV.SOLN IV ONE (13:59)
--- NOTE | 2016-06-09 15:30 | NUR ---
(LATE ENTRY) PHYSICAL THERAPY CO-SIGN The Physical Therapy Progress Notes documented by Nurse Specialist have been reviewed. 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 Patient is discharged to home now. Addendum: 06/10/16 at 0835 by Pascale Sanchez PT Amended: Links added.
--- NOTE | 2016-06-14 11:09 | NUR ---
Discharge Follow Up Phone Calls: Campaign Analyst called and left voice mails for pt ([phone]) on 06/12/16, 06/13/16, 06/14/16. Campaign Analyst contact information was provided and pt was encouraged to call back with any needs or concerns. Campaign Analyst will continue to remain available for pt to call back, but no further follow up phone calls will be made at this time. Addendum: 06/21/16 at 1641 by Constanza Zhang LCSW Patient left voicemail messages 06/19/16 and 06/20/16 stating he was okay and Campaign Analyst could return his call. KATIE left a voicemail message on 06/21/16 stating that patient should return the call if he had questions or concerns.
== END 2016-06-09 14:00 | disposition home or self-care (01) | DRG 854 ==
LOC: SED 07:23 → SMU 10:08
PROVIDERS: ADMIT Internal Medicine; ATTEND Internal Medicine
PROC: 0F798ZZ Dilation of Common Bile Duct, Via Natural or Artificial Opening Endoscopic (ICD-10-PCS; 2016-06-05)
PROC: BF101ZZ Fluoroscopy of Bile Ducts using Low Osmolar Contrast (ICD-10-PCS; 2016-06-05)
PROC: 0FC98ZZ Extirpation of Matter from Common Bile Duct, Via Natural or Artificial Opening Endoscopic (ICD-10-PCS; principal; 2016-06-05 13:30)
PROC: 0FT44ZZ Resection of Gallbladder, Percutaneous Endoscopic Approach (ICD-10-PCS; 2016-06-07)
DX: A41.9 Sepsis, unspecified organism (principal); K80.63 Calculus of gallbladder and bile duct with acute cholecystitis with obstruction; Z85.51 Personal history of malignant neoplasm of bladder; K21.9 Gastro-esophageal reflux disease without esophagitis; Z82.49 Family history of ischemic heart disease and other diseases of the circulatory system; K59.00 Constipation, unspecified; Z88.8 Allergy status to other drugs, medicaments and biological substances
CPT/HCPCS: 36415; 71010; 74330-TC; 76700-TC; 80053; 81000-TC; 82150-TC; 83021; 83605; 83690-TC; 83735-TC; 84155; 84165; 84484; 85007; 85025; 85027; 85379; 85610-TC; 85660; 85730-TC; 86335; 87040-TC; 87081; 87230-TC; 88304; 93005; 96361; 96374; 96375; 97110-GP; 97116-GP; 97530-GP; 99285; C1727; C1769; C9113; J0330; J1170; J1885; J1956; J2175; J2250; J2270; J2405; J2543; J3010; J3490; J7030; J7120; Q9967